=== PATIENT | female | born 1985 | race Caucasian/White ===

== ENCOUNTER 2016-11-26 03:28 | Emergency (ER) | payer SELFPAY ==
[2016-11-26] MEDS ORDERED: LORAZEPAM INJ 2 MG/1 ML VIAL IM ONE ×2 (03:33→04:02)
[2016-11-26] MEDS ORDERED: LORAZEPAM INJ 2 MG/1 ML VIAL ONE (03:35)
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
[2016-11-26 04:50] LABS: ALANINE AMINOTRANSFERASE 30 U/L (9-52); ALBUMIN 4.3 g/dL (3.5-5.0); ALCOHOL 78 mg/dL (NONE DETECTED); ALKALINE PHOSPHATASE 49 U/L (38-126); ANION GAP 14 (5-19); ASPARTATE AMINO TRANSFERASE 36 U/L (14-36); BILIRUBIN,TOTAL 0.4 mg/dL (0.2-1.3); BLOOD UREA NITROGEN 7 mg/dL (7-20); CALCIUM 9.6 mg/dL (8.4-10.2); CARBON DIOXIDE 25 mmol/L (22-30); CHLORIDE 105 mmol/L (98-107); CREATININE RESULT 0.55 mg/dL (0.52-1.25); GLUCOSE 78 mg/dL (75-110); POTASSIUM 3.4 mmol/L (3.6-5.0); SODIUM 144.1 mmol/L (137-145); TOTAL PROTEIN 6.7 g/dL (6.3-8.2)
[2016-11-26] MEDS ORDERED: NICOTINE 14 MG/24 HR PATCH.TD24 TD ONE (04:55)
[2016-11-26 05:16] LABS: ABSOLUTE BASOPHILS # (AUTO) 0.1 10^3/uL (0.0-0.2); ABSOLUTE EOSINOPHILS # (AUTO) 0.2 10^3/uL (0.0-0.6); ABSOLUTE LYMPHOCYTES (AUTO) 2.9 10^3/uL (0.5-4.7); ABSOLUTE MONOCYTES (AUTO) 0.6 10^3/uL (0.1-1.4); ABSOLUTE NEUT (AUTO) 3.8 10^3/uL (1.7-8.2); BASOPHILS % (AUTO) 0.7 % (0-2); EOSINOPHILS % (AUTO) 2.9 % (0-6); HEMATOCRIT 34.9 % (36.0-47.0); HEMOGLOBIN 12.2 g/dL (12.0-15.5); HGB HCT DIFFERENCE 1.7; LYMPHOCYTES % (AUTO) 38.9 % (13-45); MEAN CORPUSCULAR HEMOGLOBIN 29.8 pg (27.0-33.4); MEAN CORPUSCULAR HGB CONC 35.1 g/dL (32.0-36.0); MEAN CORPUSCULAR VOLUME 85 fl (80-97); MONOCYTES % (AUTO) 7.4 % (3-13); RED BLOOD COUNT 4.11 10^6/uL (3.72-5.28); RED CELL DISTRIBUTION WIDTH 15.1 % (11.5-14.0); SEGMENTED NEUTROPHILS % (AUTO) 50.1 % (42-78); WHITE BLOOD COUNT 7.5 10^3/uL (4.0-10.5)
[2016-11-26 05:19] LABS: APPEARANCE,URINE CLEAR; BILIRUBIN,URINE NEGATIVE (NEGATIVE); GLUCOSE, URINE NEGATIVE (NEGATIVE); KETONES,URINE NEGATIVE (NEGATIVE); LEUKOCYTE ESTERASE,URINE NEGATIVE (NEGATIVE); NITRITE,URINE NEGATIVE (NEGATIVE); PROTEIN,URINE NEGATIVE (NEGATIVE); URINE SPECIFIC GRAVITY 1.003; UROBILINOGEN,URINE NEGATIVE mg/dL (<2.0)
--- NOTE | 2016-11-26 08:51 | EKG REPORT ---
SEVERITY:- ABNORMAL ECG - SINUS TACHYCARDIA PRIMITIVO, CONSIDER BIATRIAL ABNORMALITIES : Confirmed by: Shamar Duong 26-Nov-2016 08:51:16
--- NOTE | 2016-11-26 09:24 | ER Document Report ---
Doctor's Note Notes: 11/26/16 09:24 Lab work vital signs have been reviewed. At this time patient is currently stable with no overnight events requiring no intervention at this time. Patient stable for transfer or other disposition
[2016-11-26 11:50] VITALS: BP 108/69
--- NOTE | 2016-11-27 08:12 | PSYCHOLOGICAL NOTE ---
Psych Note - Psych Note Psych Note: Patient disclose she just got out of [facility] and is trying to adjust to being out. She states that nothing is as she thought it would be. She continued to state that she does not know what she was thinking when she cut herself stating that she wants to live. Patient denies previous attempts. Patient denies history of cutting. Patient confirms she had several glasses of wine previously and did heroin the day before. patient is established with [facility] will be starting the [employer] program and has a biosecurity officer. Sharri muro Mark Anthony agrees to be patient safety resource and remove all potential weapons so the patient has no access. He endorses patient statement that this is never happened before. Patient is alert and oriented to person place time and Circumstance. Mood is euthymic with congruent affect. It is noted patient had been previously inconsolable with crying and currently has puffy eyes. Patient denies suicidal homicidal ideation. Patient denies auditory and visual hallucinations no delusions are noted. Thought process is logical organized linear. Conversational speech was within normal rate tone and prosody. Eye contact was well-maintained. Intellectual abilities appear to be with an average range. Attention and concentration are good. Insight, judgment, impulse control are poor. Clinician notes that patient has significant substance abuse which affects all facets of life to include Insight judgment and impulse. Patient psychiatrically cleared for discharge. Patient deny suicidal homicidal ideation. While patient used ordering box operator to cut her wrists, it is noted the cuts are superficial not needing any bandaging other than cleaning. Patient states she was under the influence at the time. Sharri muro agrees to be safety resource. Patient has services at [facility] and [email or web address]. Dr. Delacruz was consulted on this patient attending physician is an agreement with recommendations in disposition
[2016-11-27 16:25] LABS: URINE BARBITURATES SCREEN NEGATIVE; URINE METHADONE SCREEN NEGATIVE; URINE PHENCYCLIDINE SCREEN NEGATIVE
== END 2016-11-26 11:50 | disposition home or self-care (01) ==
LOC: ER 03:28
DX: S60.811A Abrasion of right wrist, initial encounter (principal); R06.4 Hyperventilation; X78.8XXA Intentional self-harm by other sharp object, initial encounter; Y92.003 Bedroom of unspecified non-institutional (private) residence as the place of occurrence of the external cause; Z72.89 Other problems related to lifestyle
CPT/HCPCS: 93005; 99285; 96372; 36415; 80307 ×4; 84703; 85025; 80053; 81001; 93010; J2060 ×2

== ENCOUNTER 2016-12-21 21:59 | Emergency (ER) | payer SELFPAY ==
[2016-12-22] MEDS ORDERED: CEFTRIAXONE INJ 1000 MG VIAL IM ONE (02:52)
[2016-12-22] MEDS ORDERED: LIDOCAINE 1% INJ-PF (10 MG/ML) 30 ML SDV INFIL ONE (02:52)
[2016-12-22] MEDS ORDERED: DEXAMETHASONE SOD PHOS INJ 10 MG/1 ML VIAL IM ONE (02:52)
[2016-12-22] MEDS ORDERED: CLINDAMYCIN HCL 150 MG CAPSULE PO ONE (02:53)
[2016-12-22] MEDS ORDERED: HYDROCODONE/ACETAMINOPHEN 5-325 MG 6 TAB/DSPK PO PRN (02:55)
--- NOTE | 2016-12-22 02:57 | ER Document Report ---
ED General - General Chief Complaint: Toothache Stated Complaint: POSSIBLE ABSCESS Notes: Patient is 31 old female presents for complaint of dental infection with some swelling to the left side of face. It's she's had problems with her teeth for a long time. She says she started nose some swelling today. No fevers. No vomiting. No difficulty breathing. Some pain with movement of her jaw. No difficulty swallowing. - Related Data Allergies/Adverse Reactions: No Known Allergies Allergy (Unverified 11/26/16 04:05) Past Medical History - Social History Smoking Status: Current Every Day Smoker Chew tobacco use (# tins/day): No Frequency of alcohol use: None Drug Abuse: None Family History: Reviewed & Not Pertinent Patient has suicidal ideation: No Patient has homicidal ideation: No Renal/ Medical History: Denies: Hx Peritoneal Dialysis Review of Systems - Review of Systems Notes: My Normal Review Basic REVIEW OF SYSTEMS: CONSTITUTIONAL : Denies fever, chills, or sweats. Denies recent illness. EENT: Dental pain RESPIRATORY: Denies cough, cold, or chest congestion. Denies shortness of breath, difficulty breathing, or wheezing. GASTROINTESTINAL: Denies abdominal pain. Denies nausea, vomiting, or diarrhea. Denies constipation. Last BM: NEUROLOGICAL: Denies altered mental status or loss of consciousness. Denies headache. Denies weakness or paralysis or loss of use of either side. Denies problems with gait or speech. Denies sensory or motor loss. ALL OTHER SYSTEMS REVIEWED AND NEGATIVE. Physical Exam - Vital signs Vitals: Temp Pulse Resp BP Pulse Ox 98.3 F 94 18 125/79 94 12/21/16 22:07 12/21/16 22:07 12/21/16 22:07 12/21/16 22:07 12/21/16 22:07 - Notes Notes: General Appearance: Well nourished, alert, cooperative, no acute distress, mild to moderate obvious discomfort. Vitals: reviewed, See vital signs table. Head: no swelling or tenderness to the head Eyes: PERRL, EOMI, Conjuctiva clear Mouth: Patient has several dental caries with fractured teeth. Patient has a small amount of swelling along the left lower mandible. Swelling does not extend below the mandible. Patient is to difficulty opening or closing her mouth. She is able to stick her tongue out without any difficulty. Throat: No tonsillar inflammation, No airway obstruction, No lymphadenopathy Neck: Supple, no neck tenderness, No thyromegaly Extremities: strength 5/5 in all extremities, good pulses in all extremities, no swelling or tenderness in the extremities, no edema. Skin: warm, dry, appropriate color, no rash Neuro: speech clear, oriented x 3, normal affect, responds appropriately to questions. Course - Vital Signs Vital signs: Temp Pulse Resp BP Pulse Ox 98.3 F 94 18 125/79 94 12/21/16 22:07 12/21/16 22:07 12/21/16 22:07 12/21/16 22:07 12/21/16 22:07 - Transfer of Care Notes: 12/22/16 03:02 Patient is well-appearing. She does have slight swelling to left side of the jaw but is not severe. I'm concerned that he could worsen. I will start her on antibiotics. I will give her shot of Decadron. I informed her the importance of following up with a dentist as soon as possible. Informed her if the swelling increases in size, she is a swelling below the jaw, or she has any difficulty breathing or swallowing she was return to ER immediately. Patient agrees with plan will be discharged home. Dictation of this chart was performed using voice recognition software; therefore, there may be some unintended grammatical errors. Discharge - Discharge Clinical Impression: Dental infection Condition: Good Disposition: HOME, SELF-CARE Instructions: Oral Narcotic Medication ([facility]) Additional Instructions: Please take the antibiotics as prescribed. Please return to the ER immediately if you have increased swelling along her jaw, any swelling below your jaw, any difficulty opening your mouth, any difficulty breathing, any difficulty swallowing, or fevers. It is extremely important you make an appointment with the dentist or oral surgeon as soon as possiblyou Prescriptions: Clindamycin HCl 300 mg PO ASDIR #56 capsule Forms: Return to Work Referrals: RAMYA ESCOBEDO DDS [ACTIVE STAFF] - Follow up tomorrow (call to make an appointment as soon as possible)
[2016-12-22 03:39] VITALS: BP 138/74
== END 2016-12-22 03:39 | disposition home or self-care (01) ==
LOC: ER 21:59
DX: K04.7 Periapical abscess without sinus (principal); K08.89 Other specified disorders of teeth and supporting structures; R22.0 Localized swelling, mass and lump, head; F17.210 Nicotine dependence, cigarettes, uncomplicated
CPT/HCPCS: 99282; 96372; J0696; J1100

== ENCOUNTER 2017-02-05 22:13 | Inpatient (IN) | payer SELFPAY ==
[2017-02-06] MEDS ORDERED: VANCOMYCIN HCL INJ 1000 MG VIAL IV ONE (00:27)
[2017-02-06] MEDS ORDERED: CEFTRIAXONE INJ 1000 MG VIAL IV ONE (00:28)
[2017-02-06] MEDS ORDERED: MORPHINE SULFATE 10 MG/ML INJ IV ONE ×3 (00:29→05:35)
--- NOTE | 2017-02-06 00:56 | ER Document Report ---
ED General - General Chief Complaint: Hand Injury Stated Complaint: POSSIBLE HAND INJURY Notes: Patient is a 31-year-old female presents with complaint of swelling to left hand. 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 Yesterday she started nose her hand started to swell became worse today. Swelling is mostly on the radial aspect of the hand. It affects mainly the second digit and then down into the extensor surface and palmar aspect of the hand itself. She is able to extend and flex her fingers but has some pain in doing so. No associated fevers. No injury. No other complaints at this time. TRAVEL OUTSIDE OF THE [place] IN LAST 30 DAYS: No - Related Data Allergies/Adverse Reactions: No Known Allergies Allergy (Unverified 11/26/16 04:05) Past Medical History - Social History Smoking Status: Current Every Day Smoker Chew tobacco use (# tins/day): No Frequency of alcohol use: Occasional Drug Abuse: None Family History: Reviewed & Not Pertinent Patient has suicidal ideation: No Patient has homicidal ideation: No Renal/ Medical History: Denies: Hx Peritoneal Dialysis Review of Systems - Review of Systems Notes: My Normal Review Basic REVIEW OF SYSTEMS: CONSTITUTIONAL : Denies fever, chills, or sweats. Denies recent illness.. GASTROINTESTINAL: Denies abdominal pain. Denies nausea, vomiting, or diarrhea. Denies constipation. Last BM: MUSCULOSKELETAL: Swelling to the hand. SKIN: Denies rash or skin lesions. NEUROLOGICAL: Denies sensory or motor loss. ALL OTHER SYSTEMS REVIEWED AND NEGATIVE. Physical Exam - Vital signs Vitals: Temp Pulse Resp BP Pulse Ox 98.5 F 97 16 123/76 100 02/05/17 22:17 02/05/17 22:17 02/05/17 22:17 02/05/17 22:17 02/05/17 22:17 - Notes Notes: General Appearance: Well nourished, alert, cooperative, no acute distress, moderate obvious discomfort. Vitals: reviewed, See vital signs table. Head: no swelling or tenderness to the head Eyes: PERRL, EOMI, Conjuctiva clear Lungs: No wheezing, No rales, No rhonci, No accessory muscle use, good air exchange bilaterally. Heart: Normal rate, Regular rythm, No murmur, no rub Abdomen: Normal BS, soft, No rigidity, No abdominal tenderness, No guarding, no rebound, no abdominal masses, no organomegaly Extremities: strength 5/5 in all extremities, good pulses in all extremities, some swelling mainly to the extensor surface of the radial aspect of the left hand. Some swelling does extend around to the palm itself was elevated into the second digit. Patient is able to flex and extend the hand fully but has some pain in doing so. Distal sensation intact. No sausage digit on exam., no edema. Skin: warm, dry, appropriate color, no rash Neuro: speech clear, oriented x 3, normal affect, responds appropriately to questions. Course - Re-evaluation Re-evalutation: 02/06/17 04:47 Patient's hands continue to swell no increase in size. I did speak with the orthopedist reservation clerk, Dr. Zhang. Discussed with my concerns patient's infection is gone worse. Informed him currently the patient does not fit the picture flexor tenosynovitis being that patient does not have a sausage digit and she is still able to extend her fingers. She does have some limitation mainly because of all the swelling on the extensor surface of the hand. He agrees patient should be admitted. He requested that patient hospitals. I've paged the hospitalist and are awaiting their reply. - Vital Signs Vital signs: Temp Pulse Resp BP Pulse Ox 98.5 F 97 16 123/76 100 02/05/17 22:17 02/05/17 22:17 02/05/17 22:17 02/05/17 22:17 02/05/17 22:17 - Laboratory Result Diagrams: 02/06/17 01:19 02/06/17 01:19 Laboratory results interpreted by me: 02/06/17 02/06/17 01:19 01:19 RDW 14.2 H BUN 6 L - Transfer of Care Notes: 02/06/17 05:50 Patient's hand continued to swell more and more. Most of the swelling is on the extensor surface of the hand. I did speak with Dr. Zhang, orthopedic surgeon, who recommended admission to medicine. I did speak with the hospitalist who agrees that the patient for further workup and treatment of the infection of the left hand. Patient is agreeable to plan. Dictation of this chart was performed using voice recognition software; therefore, there may be some unintended grammatical errors. 02/06/17 05:51 Discharge - Discharge Clinical Impression: Cellulitis of hand, left Condition: Stable Disposition: ADMITTED INPATIENT Admitting Provider: Hospitalist Unit Admitted: Telemetry Additional Instructions: Please wrist or hand and keep it elevated over the next few days. Please return to ER or the orthopedic office within 24 hours for reevaluation of your hand. Please take antibiotics as prescribed. Please return to ER immediately if you feel that the swelling in your hand is worsening, is becoming more painful, you have fevers, are unable to bend you fingers, or if you have further concerns that you are worsening. Prescriptions: Clindamycin HCl 300 mg PO ASDIR #56 capsule Hydrocodone/Acetaminophen [[place] 5-325 mg Tablet] 1 tab PO Q4 PRN #12 tablet PRN Reason: For Breakthrough Pain
[2017-02-06 01:28] LABS: ABSOLUTE EOSINOPHILS # (AUTO) 0.3 10^3/uL (0.0-0.6); ABSOLUTE LYMPHOCYTES (AUTO) 1.9 10^3/uL (0.5-4.7); ABSOLUTE MONOCYTES (AUTO) 0.3 10^3/uL (0.1-1.4); ABSOLUTE NEUT (AUTO) 4.1 10^3/uL (1.7-8.2); BASOPHILS % (AUTO) 0.6 % (0-2); EOSINOPHILS % (AUTO) 3.9 % (0-6); HEMATOCRIT 40.2 % (36.0-47.0); HEMOGLOBIN 13.7 g/dL (12.0-15.5); HGB HCT DIFFERENCE 0.9; LYMPHOCYTES % (AUTO) 28.6 % (13-45); MEAN CORPUSCULAR HEMOGLOBIN 28.9 pg (27.0-33.4); MEAN CORPUSCULAR HGB CONC 34.1 g/dL (32.0-36.0); MEAN CORPUSCULAR VOLUME 85 fl (80-97); MONOCYTES % (AUTO) 5.2 % (3-13); RED BLOOD COUNT 4.74 10^6/uL (3.72-5.28); RED CELL DISTRIBUTION WIDTH 14.2 % (11.5-14.0); SEGMENTED NEUTROPHILS % (AUTO) 61.7 % (42-78); WHITE BLOOD COUNT 6.7 10^3/uL (4.0-10.5)
[2017-02-06 01:44] LABS: ANION GAP 13 (5-19); BLOOD UREA NITROGEN 6 mg/dL (7-20); CALCIUM 10.2 mg/dL (8.4-10.2); CARBON DIOXIDE 30 mmol/L (22-30); CHLORIDE 100 mmol/L (98-107); CREATININE RESULT 0.53 mg/dL (0.52-1.25); GLUCOSE 93 mg/dL (75-110); POTASSIUM 3.8 mmol/L (3.6-5.0); SODIUM 143.1 mmol/L (137-145)
[2017-02-06] MEDS ORDERED: PROMETHAZINE HCL INJ 25 MG/1 ML VIAL IV PRN (07:24)
[2017-02-06] MEDS ORDERED: VANCOMYCIN HCL 0 MG in DEXTROSE 5%-WATER 250 ML IV NR (07:30)
[2017-02-06 08:20] LABS: ADD ON TESTING BLD IN LAB ACKNOWLEDGE
[2017-02-06 08:44] LABS: ALANINE AMINOTRANSFERASE 22 U/L (9-52); ALBUMIN 4.3 g/dL (3.5-5.0); ALKALINE PHOSPHATASE 64 U/L (38-126); ASPARTATE AMINO TRANSFERASE 20 U/L (14-36); BILIRUBIN,DIRECT 0.3 mg/dL (0.0-0.4); BILIRUBIN,TOTAL 0.5 mg/dL (0.2-1.3); TOTAL PROTEIN 7.7 g/dL (6.3-8.2)
[2017-02-06] MEDS ORDERED: CEFAZOLIN 1 GM/D5W RTU 1 GM/50 ML RTUPB IV SCH (10:00)
--- NOTE | 2017-02-06 10:02 | PDOC H&P ---
History of Present Illness Admission Date/PCP: 02/06/17 05:56 PCP None Patient complains of: Left hand pain and swelling History of Present Illness: GILDARDO KWAN is a 31 year old female, basically only with underlying easy bruising on occasion, who presents to the emergency room for evaluation of 24-48 hour history of increasing swelling tenderness and inflammation of her left hand. 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 States she bumps and scratches her hands fairly frequently. Pain is described as combination sharp and throbbing, in particular with much of any movement of fingers of her hand or certainly any contact with the area of involvement No fever or chills. No nausea vomiting. No prior such soft tissue infections. No history of MRSA. Tetanus is up-to-date. Patient has been discussed with emergency room physician who evaluated the patient. Prior to my being called, the emergency room physician did speak with Dr. Zhang, reclamation kettle tender orthopedist, who agreed with plans and has agreed to see the patient in consultation. Please refer to emergency room physician notes related to same.. Laboratory results are listed in [facility] and are reviewed. X-ray summary results are listed below, with full report(s) reviewed. . Social history/personal habits: . 2 children. Employment as noted above. Half-pack of cigarettes per day. Less than a sixpack of beer per week. No illicit drug use. Allergies/adverse reactions NKDA. Home medications none REVIEW OF SYSTEMS: Constitutional: No fever or chills. Eyes: Wears glasses. ENT: No swallowing problems or complaints. No hearing problems or complaints. Pulmonary: No current complaints. Cardiovascular: No current complaints, including chest pain. Gastrointestinal: No current complaints, including nausea or vomiting. Skin: See history and present illness. Hematologic: Easy bruising. Neurologic: No current complaints, including numbness or tingling. Musculoskeletal: See history and present illness. Psychiatric: No current complaints, including anxiety or depression. Endocrine: No current complaints, including polyuria. Genitourinary: No current complaints, including dysuria. PHYSICAL EXAMINATION: 5 feet 5 inches tall. 59.3 kg. BMI 21.8 kg/m. Temperature 98.2. Pulse 88 and regular. Blood pressure 118/81. Respirations are 18 and unlabored. 100% saturation on room air. Thin otherwise well-developed female, appearing approximate her stated age. Appears not to feel very well, rarely related to the pain in her left hand. Awake alert and cooperative, however. Female emergency room nursing executive Nahomy is present. Skin is warm and dry. No grossly obvious evidence of rash in areas of skin examined. No subcutaneous nodules palpated. See comments under "extremities" below. ENT: Hearing grossly normal to normal conversation. Tongue midline on protrusion pink and slightly moist. Eyes: No scleral icterus. Pupils equal and reactive to light at 4 mm. [place] conjunctivae. Neck is supple and nontender to gentle active range of motion and palpation. Midline trachea. No palpable thyroid nodule mass enlargement or tenderness. Lymphatic: No palpable cervical or clavicular nodes. Neck and lymphatic exams limited by patient body habitus. Psychiatric: Reasonable insight into acute and chronic medical issues. Oriented to time location and why here. Lungs: Auscultation reveals clear and equal breath sounds bilaterally. No use of accessory respiratory muscles. Cardiovascular: Heart regular rate and rhythm, without gallop murmur or rub. No carotid or abdominal aortic bruits. No ankle or pedal edema. palpable dorsalis pedis pulses. Abdomen: soft, , slightly distended nontender with positive bowel sounds. Unable to adequately evaluate abdomen for masses or organomegaly due to distention. Extremities: Feet are warm and dry. No calf tenderness to compression. No grossly obvious visual evidence of calf swelling. Gentle manipulation of lower extremities fails to reveal any obvious evidence of injury or instability to knees hips or ankles. Examination of her left hand reveals primarily dorsal involvement. Some palmar involvement, but again primarily on the dorsum of the hand. Primary area of involvement seems to be the index finger. There is soft tissue swelling mild warmth and mild to moderate tenderness involving the great majority of the dorsum of the left hand, along with again primarily the index finger. Somewhat lesser involvement of the middle finger. Not able To completely make a fist due to swelling and tenderness. Not able to completely extend the fingers, again due to same. No crepitus or expressible discharge. No specific skin entrance site. Neurologic: Moves right upper extremity grossly normally; decreased movement of left upper extremity due to pain involving the left hand.. Patellar reflexes absent. Absent Babinski. Light touch is intact at feet. Dorsiflexion and plantarflexion of feet 5 / 5 and symmetric. Past Medical History Cardiac Medical History: Denies: Congestive Heart Failure, DVT, Myocardial Infarction, Hyperlipidema, Hypertension, Pulmonary Embolism Pulmonary Medical History: Denies: Asthma, Chronic Obstructive Pulmonary Disease (COPD), Sleep Apnea EENT Medical History: Denies: Eyes, Ears, Throat Neurological Medical History: Denies: Hemorrhagic CVA, Ischemic CVA, Seizures Endocrine Medical History: Denies: Diabetes Mellitus Type 1, Diabetes Mellitus Type 2, Hyperthyroidism, Hypothyroidism Renal/ Medical History: Reports: None GI Medical History: Denies: Cirrhosis, Gastroesophageal Reflux Disease, Hepatitis, Peptic Ulcer Disease Musculoskeltal Medical History: Reports: None Skin Medical History: Reports: None Psychiatric Medical History: Reports: Tobacco Dependency Denies: Alcohol Dependency, Depression, General Anxiety Disorder, Substance Abuse Hematology: Reports: Other - Easy bruising Infectious Medical History: Denies: Clostridium Difficile, Hepatitis B, Hepatitis C, Methicillin- Resistant Staph Aureus Past Surgical History Past Surgical History: Reports: Section - 3, Tubal Ligation Social History Information Source: Patient, Emergency Med Personnel, [facility] Records Smoking Status: Current Every Day Smoker Frequency of Alcohol Use: Social Drugs: None - Advance Directive Resuscitation Status: Full Code Surrogate healthcare decision maker:: Mother Family History Family History: Reviewed & Not Pertinent Parental Family History Reviewed: Yes Children Family History Reviewed: Yes Sibling(s) Family History Reviewed.: Yes Medication/Allergy Home Medications: Clindamycin HCl 300 mg PO ASDIR #56 capsule 12/22/16 Clindamycin HCl 300 mg PO ASDIR #56 capsule 02/06/17 Hydrocodone/Acetaminophen [[place] 5-325 mg Tablet] 1 tab PO Q4 PRN #12 tablet Allergies/Adverse Reactions: No Known Allergies Allergy (Unverified 11/26/16 04:05) Physical Exam Vital Signs: Temp Pulse Resp BP Pulse Ox 97.7 F 85 13 105/66 99 02/06/17 07:06 02/06/17 07:06 02/06/17 07:06 02/06/17 07:06 02/06/17 07:06 Results Impressions: Hand X-Ray 02/06/17 00:28 IMPRESSION: SOFT TISSUE SWELLING. NO FOREIGN BODY. NO BONY FINDINGS. Assessment & Plan - Diagnosis (1) Tobacco dependency Is this a current diagnosis for this admission?: YesPlan: When necessary nicotine patch. (2) DVT prophylaxis Is this a current diagnosis for this admission?: YesPlan: Knee high SCDs and Lovenox. (3) Cellulitis of hand, left Is this a current diagnosis for this admission?: YesPlan: Keep extremity elevated above level of heart. Ancef and intravenous vancomycin ; pharmacy to assist with vancomycin dosing. Orthopedics consult; Dr. Zhang is aware and has agreed to see patient. I have strongly encouraged patient [not to get out of bed without notifying staff] , to avoid a fall with injury. Impression and plans were discussed with [patient], who concurs. Time spent in evaluation and management of patient: 55 minutes. - Inpatient Certification Based on my medical assessment, after consideration of the patient's comorbidities, presenting symptoms, or acuity I expect that the services needed warrant INPATIENT care.: Yes I certify that my determination is in accordance with my understanding of Medicare's requirements for reasonable and necessary INPATIENT services [42 CFR 412.3e].: Yes Medical Necessity: Need Close Monitoring Due to Risk of Patient Decompensation, Need For Continuous Telemetry Monitoring, Need for IV Antibiotics, Risk of Complication if Not Cared For in Hospital Post Hospital Care: D/C or Transfer Summary
[2017-02-06 11:31] LABS: URINE BARBITURATES SCREEN NEGATIVE; URINE METHADONE SCREEN NEGATIVE; URINE PHENCYCLIDINE SCREEN NEGATIVE
[2017-02-06 11:35] LABS: URINE OPIATES LOW UNCONFIRMED POSITIVE
[2017-02-06] MEDS: POTASSI CL 20 MEQ/D5NS 1L 1,000 ML IV PRN ×2 (12:03→20:43)
[2017-02-06] MEDS: MORPHINE SULFATE 10 MG/ML INJ IV PRN ×2 (12:15→16:19)
[2017-02-06] MEDS: DOCUSATE SODIUM 100 MG CAPSULE PO SCH ×2 (12:17→19:05)
[2017-02-06] MEDS: ENOXAPARIN SODIUM INJ 40 MG/0.4 ML DISP.SYRIN SUBCUT SCH (12:18)
[2017-02-06] MEDS: NICOTINE 14 MG/24 HR PATCH.TD24 TD PRN (12:18)
--- NOTE | 2017-02-06 17:29 | PDOC PROGRESS REPORT ---
Subjective Progress Note for:: 02/06/17 Subjective:: The patient was seen earlier today on rounds. The patient denies any nausea, vomiting, diarrhea, shortness of breath, dizziness, chest pain, heart palpitations, fevers, or chills. The patient has remained afebrile. Blood pressures have been in a good range. The patient admits to ongoing hand pain and states that symptoms have not improved since presentation. When prompted the patient voices no other concerns at this time. Review of systems: The rest of the review of systems is negative. Physical Exam Vital Signs: Temp Pulse Resp BP Pulse Ox 98.2 F 85 14 108/64 83 L 02/06/17 16:05 02/06/17 07:06 02/06/17 16:05 02/06/17 16:05 02/06/17 16:05 Intake & Output 02/04/17 02/05/17 02/06/17 23:59 23:59 23:59 Intake Total 50 Balance 50 Weight 55.4 kg General appearance: PRESENT: no acute distress, cooperative, well-developed, well-nourished Head exam: PRESENT: atraumatic, normocephalic Eye exam: PRESENT: conjunctiva pink, EOMI, PERRLA. ABSENT: scleral icterus Ear exam: PRESENT: normal external ear exam Mouth exam: PRESENT: moist, tongue midline Neck exam: ABSENT: carotid bruit, JVD, lymphadenopathy, thyromegaly Respiratory exam: PRESENT: clear to auscultation ramon. ABSENT: rales, rhonchi, wheezes Cardiovascular exam: PRESENT: RRR. ABSENT: diastolic murmur, rubs, systolic murmur Pulses: PRESENT: normal dorsalis pedis pul Vascular exam: PRESENT: normal capillary refill GI/Abdominal exam: PRESENT: normal bowel sounds, soft. ABSENT: distended, guarding, mass, organolmegaly, rebound, tenderness Rectal exam: PRESENT: deferred Extremities exam: PRESENT: full ROM, other - Left hand cellulitis and edema. ABSENT: calf tenderness, clubbing, pedal edema Neurological exam: PRESENT: alert, awake, oriented to person, oriented to place , oriented to time, oriented to situation, CN II-XII grossly intact. ABSENT: motor sensory deficit Psychiatric exam: PRESENT: appropriate affect, normal mood. ABSENT: homicidal ideation, suicidal ideation Skin exam: PRESENT: dry, intact, warm. ABSENT: cyanosis, rash Results Laboratory Results: Labs- Last Values WBC 6.7 10^3/uL (4.0-10.5) 02/06/17 01:19 RBC 4.74 10^6/uL (3.72-5.28) 02/06/17 01:19 Hgb 13.7 g/dL (12.0-15.5) 02/06/17 01:19 Hct 40.2 % (36.0-47.0) 02/06/17 01:19 MCV 85 fl (80-97) 02/06/17 01:19 MCH 28.9 pg (27.0-33.4) 02/06/17 01:19 MCHC 34.1 g/dL (32.0-36.0) 02/06/17 01:19 RDW 14.2 % (11.5-14.0) H 02/06/17 01:19 Plt Count 278 10^3/uL (150-450) 02/06/17 01:19 Seg Neutrophils % 61.7 % (42-78) 02/06/17 01:19 Lymphocytes % 28.6 % (13-45) 02/06/17 01:19 Monocytes % 5.2 % (3-13) 02/06/17 01:19 Eosinophils % 3.9 % (0-6) 02/06/17 01:19 Basophils % 0.6 % (0-2) 02/06/17 01:19 Absolute Neutrophils 4.1 10^3/uL (1.7-8.2) 02/06/17 01:19 Absolute Lymphocytes 1.9 10^3/uL (0.5-4.7) 02/06/17 01:19 Absolute Monocytes 0.3 10^3/uL (0.1-1.4) 02/06/17 01:19 Absolute Eosinophils 0.3 10^3/uL (0.0-0.6) 02/06/17 01:19 Absolute Basophils 0.0 10^3/uL (0.0-0.2) 02/06/17 01:19 Sodium 143.1 mmol/L (137-145) 02/06/17 01:19 Potassium 3.8 mmol/L (3.6-5.0) 02/06/17 01:19 Chloride 100 mmol/L (98-107) 02/06/17 01:19 Carbon Dioxide 30 mmol/L (22-30) 02/06/17 01:19 Anion Gap 13 (5-19) 02/06/17 01:19 BUN 6 mg/dL (7-20) L 02/06/17 01:19 Creatinine 0.53 mg/dL (0.52-1.25) 02/06/17 01:19 Est GFR ( Amer) > 60 (>60) 02/06/17 01:19 Est GFR (Non-Af Amer) > 60 (>60) 02/06/17 01:19 Glucose 93 mg/dL (75-110) 02/06/17 01:19 Calcium 10.2 mg/dL (8.4-10.2) 02/06/17 01:19 Total Bilirubin 0.5 mg/dL (0.2-1.3) 02/06/17 01:19 Direct Bilirubin 0.3 mg/dL (0.0-0.4) 02/06/17 01:19 Indirect Bilirubin Not Reportable 02/06/17 01:19 Neonat Total Bilirubin Not Reportable 02/06/17 01:19 AST 20 U/L (14-36) 02/06/17 01:19 ALT 22 U/L (9-52) 02/06/17 01:19 Alkaline Phosphatase 64 U/L (38-126) 02/06/17 01:19 Total Protein 7.7 g/dL (6.3-8.2) 02/06/17 01:19 Albumin 4.3 g/dL (3.5-5.0) 02/06/17 01:19 Serum HCG, Qual NEGATIVE (NEGATIVE) 02/06/17 01:19 Urine Opiates Screen UNCONFIRMED POSITIVE 02/06/17 10:30 Urine Methadone Screen NEGATIVE 02/06/17 10:30 Ur Barbiturates Screen NEGATIVE 02/06/17 10:30 Ur Phencyclidine Scrn NEGATIVE 02/06/17 10:30 Ur Amphetamines Screen NEGATIVE 02/06/17 10:30 U Benzodiazepines Scrn NEGATIVE 02/06/17 10:30 Urine Cocaine Screen NEGATIVE 02/06/17 10:30 U Marijuana (THC) Screen NEGATIVE 02/06/17 10:30 Impressions: Hand X-Ray 02/06/17 00:28 IMPRESSION: SOFT TISSUE SWELLING. NO FOREIGN BODY. NO BONY FINDINGS. Assessment & Plan - Diagnosis (1) Cellulitis of hand, left Is this a current diagnosis for this admission?: YesPlan: Currently awaiting orthotic input. Will scheduled Toradol to help with inflammation. (2) DVT prophylaxis Is this a current diagnosis for this admission?: Yes (3) Tobacco dependency Is this a current diagnosis for this admission?: YesPlan: Spent 3 minutes discussing smoking cessation education. The patient declines any pharmacological intervention at this time however will add a PRN nicotine patch. - Time Time Spent with patient: 35 or more minutes Medications reviewed and adjusted accordingly: Yes Anticipated discharge: Home Within: within 24 hours, within 48 hours Disposition: The patient is a full code. Pending patient's symptomatology and diagnostic findings will reevaluate in the a.m.
[2017-02-06] MEDS: KETOROLAC TROMETHAMINE INJ/PF 30 MG/1 ML SDV IV SCH (19:57)
[2017-02-06] MEDS: OXYCODONE HCL IR 5 MG TABLET PO PRN (20:43)
[2017-02-06] MEDS: VANCOMYCIN HCL 1,000 MG in DEXTROSE 5%-WATER 250 ML IV SCH (21:35)
[2017-02-06] MEDS: ACETAMINOPHEN 325 MG TABLET PO PRN (22:25)
[2017-02-07] MEDS: KETOROLAC TROMETHAMINE INJ/PF 30 MG/1 ML SDV IV SCH ×7 (00:45→23:21)
[2017-02-07] MEDS: OXYCODONE HCL IR 5 MG TABLET PO PRN ×4 (04:19→23:21)
[2017-02-07] MEDS: VANCOMYCIN HCL 1,000 MG in DEXTROSE 5%-WATER 250 ML IV SCH ×3 (06:05→22:01)
[2017-02-07] MEDS: POTASSI CL 20 MEQ/D5NS 1L 1,000 ML IV PRN ×2 (06:05→18:20)
--- NOTE | 2017-02-07 07:48 | PDOC CONSULTATION ---
History of Present Illness Admission Date/PCP: 02/06/17 07:20 History of Present Illness: GILDARDO KWAN is a 31 year old female, basically only with underlying easy bruising on occasion, who presents to the emergency room for evaluation of 24-48 hour history of increasing swelling tenderness and inflammation of her left hand. Patient states it initially started on Saturday. She has had episodes the past of swelling but it usually resolves. She was started on antibiotics on admission. She states over the past 24 hours the swelling has significantly improved along with the pain. Denies fever chills or sweats. Current pain 12/28. Past Medical History Cardiac Medical History: Denies: Congestive Heart Failure, DVT, Myocardial Infarction, Hyperlipidema, Hypertension, Pulmonary Embolism Pulmonary Medical History: Denies: Asthma, Chronic Obstructive Pulmonary Disease (COPD), Sleep Apnea EENT Medical History: Reports: Other - Easy bruising Denies: Eyes, Ears, Throat Neurological Medical History: Denies: Hemorrhagic CVA, Ischemic CVA, Seizures Endocrine Medical History: Denies: Diabetes Mellitus Type 1, Diabetes Mellitus Type 2, Hyperthyroidism, Hypothyroidism Renal/ Medical History: Reports: None GI Medical History: Denies: Cirrhosis, Gastroesophageal Reflux Disease, Hepatitis, Peptic Ulcer Disease Musculoskeltal Medical History: Reports: None Skin Medical History: Reports: None Psychiatric Medical History: Reports: Tobacco Dependency Denies: Alcohol Dependency, Depression, General Anxiety Disorder, Substance Abuse Hematology: Reports: Other - Easy bruising Infectious Medical History: Denies: Clostridium Difficile, Hepatitis B, Hepatitis C, Methicillin- Resistant Staph Aureus Past Surgical History Past Surgical History: Reports: Section - 3, Tubal Ligation Social History Smoking Status: Current Some Day Smoker Cigarettes Packs Per Day: 0.5 Number of Years Smokin Frequency of Alcohol Use: Occasional Hx Recreational Drug Use: No Drugs: None Hx Prescription Drug Abuse: No - Advance Directive Resuscitation Status: Full Code Family History Family History: Reviewed & Not Pertinent Parental Family History Reviewed: No Children Family History Reviewed: No Sibling(s) Family History Reviewed.: No Medication/Allergy Home Medications: No Home Medications 02/06/17 Allergies/Adverse Reactions: No Known Allergies Allergy (Unverified 11/26/16 04:05) Review of Systems Constitutional: ABSENT: chills, fever(s), headache(s), weight gain, weight loss Eyes: ABSENT: visual disturbances Ears: ABSENT: hearing changes Cardiovascular: ABSENT: chest pain, dyspnea on exertion, edema, orthropnea, palpitations Respiratory: ABSENT: cough, hemoptysis Gastrointestinal: ABSENT: abdominal pain, constipation, diarrhea, hematemesis, hematochezia, nausea, vomiting Genitourinary: ABSENT: dysuria, hematuria Musculoskeletal: PRESENT: as per HPI Integumentary: ABSENT: rash, wounds Neurological: ABSENT: abnormal gait, abnormal speech, confusion, dizziness, focal weakness, syncope Psychiatric: ABSENT: anxiety, depression, homidical ideation, suicidal ideation Endocrine: ABSENT: cold intolerance, heat intolerance, menstrual abnormalities, polydipsia, polyuria Hematologic/Lymphatic: ABSENT: easy bleeding, easy bruising, lymphadenopathy Physical Exam Vital Signs: Temp Pulse Resp BP Pulse Ox 98.2 F 90 17 104/47 L 97 02/06/17 19:54 02/06/17 19:54 02/06/17 19:54 02/06/17 19:54 02/06/17 19:54 Intake & Output 02/06/17 02/07/17 02/08/17 06:59 06:59 06:59 Intake Total 2921 Balance 2921 Weight 55.4 kg General appearance: PRESENT: no acute distress, well-developed, well-nourished Head exam: PRESENT: atraumatic, normocephalic Eye exam: PRESENT: conjunctiva pink, EOMI, PERRLA. ABSENT: scleral icterus Ear exam: PRESENT: normal external ear exam Mouth exam: PRESENT: moist, tongue midline Neck exam: PRESENT: full ROM. ABSENT: carotid bruit, JVD, lymphadenopathy, thyromegaly Cardiovascular exam: PRESENT: RRR. ABSENT: diastolic murmur, rubs, systolic murmur Pulses: PRESENT: normal dorsalis pedis pul, +2 pedal pulses bilateral Vascular exam: PRESENT: normal capillary refill GI/Abdominal exam: PRESENT: normal bowel sounds, soft. ABSENT: distended, guarding, mass, organolmegaly, rebound, tenderness Rectal exam: PRESENT: deferred Musculoskeletal exam: PRESENT: other - Left hand: Swelling dorsally over the MCP joint. Small abrasion along the ulnar aspect proximal to the MCP joint of the index finger. No fusiform swelling. No tenderness along the flexor sheath. No pain with mid range of motion of the MCP joint. Pain with terminal flexion of the MCP joint. No tracking erythema. No lymphangitis. No sensory deficits. Intact independent DIP, PIP and MCP joint flexion/extension. Neurological exam: PRESENT: alert, awake, oriented to person, oriented to place , oriented to time, oriented to situation, CN II-XII grossly intact. ABSENT: motor sensory deficit Psychiatric exam: PRESENT: appropriate affect, normal mood. ABSENT: homicidal ideation, suicidal ideation Skin exam: PRESENT: dry, intact, warm. ABSENT: cyanosis, rash Results Impressions: Hand X-Ray 02/06/17 00:28 IMPRESSION: SOFT TISSUE SWELLING. NO FOREIGN BODY. NO BONY FINDINGS. Assessment & Plan - Diagnosis (1) Cellulitis of hand, left Is this a current diagnosis for this admission?: YesPlan: On examination patient has findings suggesting cellulitis there is no sign or symptoms to suggest underlying flexor tenosynovitis however given her swelling there is the possibility of MCP joint involvement despite no deep wound but also given her history of recurrent swelling there is the possibility of inflammatory arthropathy. The given patient's pain has improved with the IV antibiotics I have recommended continued observation however if she fails to see improvement over the next 24 hours would consider MRI with contrast of the left hand. We will continue to follow patient.
--- NOTE | 2017-02-07 09:21 | PDOC PROGRESS REPORT ---
Subjective Progress Note for:: 02/07/17 Subjective:: The patient was seen earlier today on rounds. The patient denies any nausea, vomiting, diarrhea, shortness of breath, dizziness, chest pain, heart palpitations, fevers, or chills. The patient has remained afebrile. Blood pressures have been in a good range. Overall symptoms have improved. Hand looks much better. When prompted the patient voices no other concerns at this time. Review of systems: The rest of the review of systems is negative. Physical Exam Vital Signs: Temp Pulse Resp BP Pulse Ox 98.1 F 76 17 108/57 L 99 02/07/17 08:40 02/07/17 08:40 02/07/17 08:40 02/07/17 08:40 02/07/17 08:40 Intake & Output 02/05/17 02/06/17 02/07/17 23:59 23:59 23:59 Intake Total 780 2141 Balance 780 2141 Weight 55.4 kg General appearance: PRESENT: no acute distress, cooperative, well-developed, well-nourished Head exam: PRESENT: atraumatic, normocephalic Eye exam: PRESENT: conjunctiva pink, EOMI, PERRLA. ABSENT: scleral icterus Ear exam: PRESENT: normal external ear exam Mouth exam: PRESENT: moist, tongue midline Neck exam: ABSENT: carotid bruit, JVD, lymphadenopathy, thyromegaly Respiratory exam: PRESENT: clear to auscultation ramon. ABSENT: rales, rhonchi, wheezes Cardiovascular exam: PRESENT: RRR. ABSENT: diastolic murmur, rubs, systolic murmur Pulses: PRESENT: normal dorsalis pedis pul Vascular exam: PRESENT: normal capillary refill GI/Abdominal exam: PRESENT: normal bowel sounds, soft. ABSENT: distended, guarding, mass, organolmegaly, rebound, tenderness Rectal exam: PRESENT: deferred Extremities exam: PRESENT: full ROM, other - Left hand cellulitis and edema is much improved in comparison to yesterday. ABSENT: calf tenderness, clubbing, pedal edema Neurological exam: PRESENT: alert, awake, oriented to person, oriented to place , oriented to time, oriented to situation, CN II-XII grossly intact. ABSENT: motor sensory deficit Psychiatric exam: PRESENT: appropriate affect, normal mood. ABSENT: homicidal ideation, suicidal ideation Skin exam: PRESENT: dry, intact, warm. ABSENT: cyanosis, rash Results Laboratory Results: 02/07/17 07:53 C-Reactive Protein 31.0 H Labs- All tests 24 hr 02/06/17 02/07/17 02/07/17 10:30 07:53 07:53 ESR 25 H C-Reactive Protein 31.0 H Urine Opiates Screen UNCONFIRMED POSITIVE Urine Methadone Screen NEGATIVE Ur Barbiturates Screen NEGATIVE Ur Phencyclidine Scrn NEGATIVE Ur Amphetamines Screen NEGATIVE U Benzodiazepines Scrn NEGATIVE Urine Cocaine Screen NEGATIVE U Marijuana (THC) Screen NEGATIVE Impressions: Hand X-Ray 02/06/17 00:28 IMPRESSION: SOFT TISSUE SWELLING. NO FOREIGN BODY. NO BONY FINDINGS. Assessment & Plan - Diagnosis (1) Cellulitis of hand, left Is this a current diagnosis for this admission?: YesPlan: Appears much improved. Will be re-evaluated by orhto. Continue scheduled Toradol for inflammation (2) DVT prophylaxis Is this a current diagnosis for this admission?: Yes (3) Tobacco dependency Is this a current diagnosis for this admission?: YesPlan: PRN nicotine patch. - Time Time Spent with patient: 25-34 minutes Medications reviewed and adjusted accordingly: Yes Anticipated discharge: Home Within: within 24 hours
[2017-02-07] MEDS: DOCUSATE SODIUM 100 MG CAPSULE PO SCH ×2 (10:40→18:22)
[2017-02-07] MEDS: NICOTINE 14 MG/24 HR PATCH.TD24 TD PRN (14:15)
[2017-02-07] MEDS: ENOXAPARIN SODIUM INJ 40 MG/0.4 ML DISP.SYRIN SUBCUT SCH (14:19)
[2017-02-07] MEDS: ACETAMINOPHEN 325 MG TABLET PO PRN ×2 (16:57→23:21)
[2017-02-08] MEDS: POTASSI CL 20 MEQ/D5NS 1L 1,000 ML IV PRN (05:35)
[2017-02-08] MEDS: ACETAMINOPHEN 325 MG TABLET PO PRN ×2 (06:21→11:24)
[2017-02-08] MEDS: VANCOMYCIN HCL 1,000 MG in DEXTROSE 5%-WATER 250 ML IV SCH (06:21)
[2017-02-08] MEDS: OXYCODONE HCL IR 5 MG TABLET PO PRN ×2 (06:21→11:59)
[2017-02-08] MEDS: KETOROLAC TROMETHAMINE INJ/PF 30 MG/1 ML SDV IV SCH ×2 (06:21→11:24)
[2017-02-08 07:39] LABS: CREATININE RESULT 0.57 mg/dL (0.52-1.25)
[2017-02-08] MEDS: DOCUSATE SODIUM 100 MG CAPSULE PO SCH (08:50)
[2017-02-08] MEDS: ENOXAPARIN SODIUM INJ 40 MG/0.4 ML DISP.SYRIN SUBCUT SCH (08:50)
[2017-02-08 11:44] VITALS: BP 108/64
--- NOTE | 2017-02-08 17:28 | PDOC DISCHARGE SUMMARY ---
General - Admit/Disc Date/PCP Admission Date/Primary Care Provider: 02/06/17 07:20 [facility] Discharge Date: 02/08/17 - Discharge Diagnosis (1) Cellulitis of hand, left Is this a current diagnosis for this admission?: Yes (2) DVT prophylaxis Is this a current diagnosis for this admission?: Yes (3) Tobacco dependency Is this a current diagnosis for this admission?: Yes - Additional Information Resuscitation Status: Full Code Discharge Diet: Regular Discharge Activity: Activity As Tolerated Home Medications: Ibuprofen [Motrin 600 mg Tablet] 600 mg PO Q8HP PRN #10 tablet 02/08/17 Sulfamethoxazole/Trimethoprim [Bactrim Ds Tablet] 1 each PO BID #9 tablet History of Present Illness Patient complains of: Hand pain History of Present Illness: GILDARDO KWAN is a 31 year old female with complaint of swelling to left hand. Patient says she works in [employer]. 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 Yesterday she started notice her hand started to swell became worse today. Swelling is mostly on the radial aspect of the hand. It affects mainly the second digit and then down into the extensor surface and palmar aspect of the hand itself. She is able to extend and flex her fingers but has some pain in doing so. No associated fevers. No injury. No other complaints at this time. Hospital Course Hospital Course: The patient was admitted to continuous telemetry unit. Blood cultures were obtained. Patient was started on broad-spectrum IV antibiotic coverage. Blood cultures revealed no growth. The patient was started on scheduled Toradol for inflammation. The patient had drastic improvement of symptoms. No further fever, white count has improved, and clinical assessment has improved. Patient is ready for discharge. The patient was seen and evaluated by Dr. Zhang and given the patient's improving symptoms no further intervention was needed nor further imaging. Physical Exam Vital Signs: Temp Pulse Resp BP Pulse Ox 98.3 F 78 17 108/64 100 02/08/17 11:41 02/08/17 11:41 02/08/17 11:41 02/08/17 11:41 02/08/17 11:41 Intake & Output 02/06/17 02/07/17 02/08/17 23:59 23:59 23:59 Intake Total 780 4931 1808 Balance 780 4931 1808 Weight 55.4 kg 55.4 kg General appearance: PRESENT: no acute distress, cooperative, well-developed, well-nourished Head exam: PRESENT: atraumatic, normocephalic Eye exam: PRESENT: conjunctiva pink, EOMI, PERRLA. ABSENT: scleral icterus Ear exam: PRESENT: normal external ear exam Mouth exam: PRESENT: moist, tongue midline Neck exam: ABSENT: carotid bruit, JVD, lymphadenopathy, thyromegaly Respiratory exam: PRESENT: clear to auscultation ramon. ABSENT: rales, rhonchi, wheezes Cardiovascular exam: PRESENT: RRR. ABSENT: diastolic murmur, rubs, systolic murmur Pulses: PRESENT: normal dorsalis pedis pul Vascular exam: PRESENT: normal capillary refill GI/Abdominal exam: PRESENT: normal bowel sounds, soft. ABSENT: distended, guarding, mass, organolmegaly, rebound, tenderness Rectal exam: PRESENT: deferred Extremities exam: PRESENT: full ROM, other - Left hand cellulitis and edema is much improved in comparison to yesterday. ABSENT: calf tenderness, clubbing, pedal edema Neurological exam: PRESENT: alert, awake, oriented to person, oriented to place , oriented to time, oriented to situation, CN II-XII grossly intact. ABSENT: motor sensory deficit Psychiatric exam: PRESENT: appropriate affect, normal mood. ABSENT: homicidal ideation, suicidal ideation Skin exam: PRESENT: dry, intact, warm. ABSENT: cyanosis, rash Results Laboratory Results: 02/08/17 06:11 02/08/17 06:11 Creatinine 0.57 Est GFR ( Amer) > 60 Est GFR (Non-Af Amer) > 60 Impressions: Hand X-Ray 02/06/17 00:28 IMPRESSION: SOFT TISSUE SWELLING. NO FOREIGN BODY. NO BONY FINDINGS. Qualifiers PATEINT BEING DISCHARGED WITH ANY OF THE FOLLOWING DIAGNOSIS?: No Plan Time Spent: Less than 30 Minutes
== END 2017-02-08 12:30 | disposition home or self-care (01) | DRG 603 ==
LOC: ER 22:13 → EH 02-06 05:56 → UNDOADMIN 02-06 05:56 → EH 02-06 07:20 → 5 02-06 15:40
PROVIDERS: ADMIT Family Medicine; ATTEND Family Medicine
DX: L03.114 Cellulitis of left upper limb (principal); F17.210 Nicotine dependence, cigarettes, uncomplicated; Z79.899 Other long term (current) drug therapy
CPT/HCPCS: 36415; 80048; 80076; 80202; 80307; 82565; 84703; 85025; 85652; 86140; 87040; 96365; 96375; 96376; 99284; J0690; J0696; J1650; J1885; J2270; J3370; J3480; J7060